=== PATIENT | male | born 1980 | race Caucasian/White ===

== ENCOUNTER 2020-06-15 13:27 | Emergency (ER) | payer MEDICAID, SELFPAY ==
[2020-06-15] VITALS (12 sets, daily range): BP systolic 84–138; BP diastolic 42–81; PULSE 20–118; RESP 14–20; TEMP 28.3–36.8; O2SAT 95–100; BMI 17.7
--- NOTE | ~2020-06-15 | CT_ITS ---
EXAMINATION: CT HEAD WITHOUT CONTRAST CLINICAL INFORMATION: Mental status change COMPARISON: None TECHNIQUE: Contiguous axial imaging was performed from the skull base to vertex without intravenous administration of contrast. This CT examination was performed using dose optimization techniques as appropriate, variously including the following: *Automated exposure control *Adjustment of mA and/or kV according to patient size (this includes techniques or standardized protocols for targeted exams where dose is matched to indication/reason for exam; i.e. extremities or head) *Use of iterative reconstruction technique DLP: 646 mGy-cm FINDINGS: There is no evidence of acute intracranial hemorrhage or territorial infarction. No abnormal mass effect or midline shift is seen. Gonzáles to white matter differentiation is well preserved. No extra-axial fluid collections are identified. The ventricles are normal in size. There is no abnormal attenuation within the brain parenchyma. The osseous structures and soft tissues are normal. The mastoid air cells and visualized portions of the paranasal sinuses are well aerated. CT/CT head/brain wo con IMPRESSION: No acute intracranial pathology.
--- NOTE | 2020-06-15 13:42 | ECG_ITS ---
Test Reason : CRISIS Blood Pressure : / mmHG Vent. Rate : 080 BPM Atrial Rate : 080 BPM P-R Int : 152 ms QRS Dur : 090 ms QT Int : 400 ms P-R-T Axes : 067 -10 046 degrees QTc Int : 462 ms Normal sinus rhythm Cannot rule out Inferior infarct , age undetermined ; could be also normal variant Borderline ECG No previous ECGs available Referred By: Holger Cobian Electronically Signed By:PETRA SRIVASTAVA
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
[2020-06-15] MEDS: 0.9 % Sodium Chloride 1,000 ML 999 ML IVCONT ×2 (13:57→16:10)
[2020-06-15 14:03] LABS: MANUAL DIFF FLAG NO
[2020-06-15 14:04] LABS: Basophils Percent Auto 0.2 % (0-2); Eosinophils Absolute Auto 0.1 X10*3/uL (0.0-0.4); Eosinophils Percent Auto 0.5 % (0-4); Hematocrit 42.5 % (42-52); Hemoglobin 12.8 g/dl (14.0-18.0); Imm Gran Abs Auto 0.03 X10*3/uL (0.00-0.03); Imm Gran Pct Auto 0.3 % (0.0-0.4); Lymphocytes Absolute Auto 2.9 X10*3/uL (1.2-4.9); Lymphocytes Percent Auto 30.6 % (20-40); Mean Corpuscular HGB Conc 30.1 g/dl (31.0-36.0); Mean Corpuscular Hemoglobin 27.2 pg (27.0-33.0); Mean Corpuscular Volume 90.2 fL (80-98); Mean Platelet Volume 10.4 fL (9.4-12.4); Monocytes Absolute Auto 0.9 X10*3/uL (0.1-1.2); Monocytes Percent Auto 9.4 % (2-11); Neutrophils Absolute Auto 5.6 X10*3/uL (2.0-8.3); Platelet Count 312 X10*3/uL (160-400); Red Blood Count 4.71 X10*6/uL (4.60-5.80); Red Cell Distribution Width 15.7 % (11.0-16.0); White Blood Count 9.5 X10*3/uL (4.8-10.8)
[2020-06-15 14:10] LABS: Prothrombin Time 11.5 SEC (10.8-13.0)
[2020-06-15 14:36] LABS: Amphetamine Screen Urine POSITIVE (Not Detect); Barbiturates, Urine Not Detected (Not Detect); Benzodiazepines Screen Urine POSITIVE (Not Detect); Cannabinoid Screen Urine POSITIVE (Not Detect); Cocaine Screen Urine Not Detected (Not Detect); Opiate Screen Urine Not Detected (Not Detect); Phencyclidine Screen Urine Not Detected (Not Detect)
[2020-06-15 14:40] LABS: Ethanol < 10 mg/dL
--- NOTE | 2020-06-15 14:47 | PC.NURSE ---
patient to from ct monitored by this RN. patient sleeping, skin pwd, resp even and non labored. NSR via tele.
--- NOTE | 2020-06-15 16:09 | PC.NURSE ---
pt continues to be sleeping. resp even and non labored. nsr via tele. hypotensive after 2nd liter of IV fluids, physician aware and plan is for 3rd liter of NS
--- NOTE | 2020-06-15 19:29 | PC.NURSE ---
Report taken from jennifer Robbins RN resuming care. Pt found sleeping in bed, wakes easily to voice, calm and cooperative, able to follow commands at this time. VSS. Call poe within reach, continue to monitor.
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
--- NOTE | 2020-06-15 21:33 | PC.NURSE ---
Labs and Covid swab obtained and sent.
[2020-06-15 21:53] LABS: COVID-19 Test Negative (Negative)
[2020-06-15 22:33] LABS: HIV AB/AG Nonreactive (Nonreactive)
[2020-06-16] VITALS: BP 129/72; PULSE 85; RESP 18; TEMP 36.6; O2SAT 97
[2020-06-16 02:00] VITALS: BP 120/78; PULSE 87; RESP 18; O2SAT 98
[2020-06-16 03:50] VITALS: BP 126/93; PULSE 84; RESP 24
--- NOTE | 2020-06-16 03:53 | PC.NURSE ---
Pt ringing the call poe, reporting possible lithium withdrawals. Pt c/o of tremors and anxiety. Pt has been tremulous throughout the night but constantly denying withdrawals until this time. VSS at this time. Pt states he has missed two doses of his [place] and knows he is withdrawing. Pt requesting this RN speak to MD regarding withdrawals. Continue to monitor.
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
[2020-06-17 08:15] LABS: HBS Num1 3.96 mIU/mL (0-7.99); HBc Num1 0.07 S/CO (0.00-0.79); Hepatitis B Core Antibody Nonreactive (Nonreactive); ~HepC Num1 0.08 S/CO (0.00-0.79); ~Hepatitis B Surface Antibody NONREACTIVE (Nonreactive); ~Hepatitis C Antibody Nonreactive (Nonreactive)
[2020-06-17 08:22] LABS: HIV Num 1 0.05 S/CO (0.00-0.99); Hepatitis B Surface Antigen Negative (Negative)
[2020-06-19 08:10] LABS: Hepatitis A Antibody IgM 0.08 Index (0-0.79); ~Hepatitis A Antibody IgM Nonreactive (Nonreactive)
== END 2020-06-16 04:38 | disposition home or self-care (01) ==
PROVIDERS: Emergency Medicine; Emergency Provider Emergency Medicine
DX: F13.9 Sedative, hypnotic or anxiolytic-related use, unspecified (principal); F15.959 Other stimulant use, unspecified with stimulant-induced psychotic disorder, unspecified; F12.959 Cannabis use, unspecified with psychotic disorder, unspecified; F23 Brief psychotic disorder; R45.1 Restlessness and agitation; R53.83 Other fatigue; Z20.822 Contact with and (suspected) exposure to COVID-19
CPT/HCPCS: 36415; 70450; 80307; 80320; 85025; 85610; 86704; 86706; 86709; 86803; 87340; 87635; 93005; 96360; 96361; 99285